=== PATIENT | female | born 1985 | race Caucasian/White ===

== ENCOUNTER → 2019-04-15 14:26 | Outpatient (CLI) | payer BC, SELFPAY ==
[2013-10-06 15:33] VITALS: BMI 37.1
[2019-04-15 16:13] LABS: hCG Titer Quant., Serum 79 mIU/mL (1-3)
== END ==
PROVIDERS: Family Provider Nurse Practitioner; PCP Nurse Practitioner; Visit Provider Obstetrics & Gynecology
DX: O20.0 Threatened abortion (principal); Z3A.00 Weeks of gestation of pregnancy not specified
CPT/HCPCS: 36415; 84702

== ENCOUNTER → 2019-04-17 10:54 | Outpatient (CLI) | payer BC, SELFPAY ==
[2013-10-06 15:33] VITALS: BMI 37.1
[2019-04-17 13:04] LABS: hCG Titer Quant., Serum 29 mIU/mL (1-3)
== END ==
PROVIDERS: Referring Provider Obstetrics & Gynecology; Visit Provider Obstetrics & Gynecology
DX: O20.0 Threatened abortion (principal); Z3A.00 Weeks of gestation of pregnancy not specified
CPT/HCPCS: 36415; 84702

== ENCOUNTER → 2019-06-03 09:43 | Outpatient (CLI) | payer BC, SELFPAY ==
[2019-06-03 10:47] LABS: Glucose 75GTT - Fasting 100 mg/dL (70-99)
[2019-06-03 10:55] LABS: Glucose 98 mg/dL (74-106)
[2019-06-03 11:58] LABS: Glucose 75GTT - 30 minutes 144 mg/dL (100-160)
[2019-06-03 12:00] LABS: Glucose 75GTT - 60 minutes 188 mg/dL (100-160)
[2019-06-03 12:51] LABS: Insulin 19.3 mU/L (2.6-37.6)
[2019-06-03 13:24] LABS: Glucose 75GTT - 120 minutes 104 mg/dL (70-140)
== END ==
PROVIDERS: Referring Provider Obstetrics & Gynecology Reproductive Endocrinology; Visit Provider Obstetrics & Gynecology Reproductive Endocrinology
DX: E28.2 Polycystic ovarian syndrome (principal)
CPT/HCPCS: 36415; 82947; 82951; 82952; 83525

== ENCOUNTER → 2020-11-17 | Outpatient (CLI) | payer BC, SELFPAY ==
[2013-10-06 15:33] VITALS: BMI 37.1
[2020-11-21 12:41] LABS: HPV APTIMA, High Risk Negative (Negative)
== END | disposition home or self-care (01) ==
LOC: LABSPEC 14:54
PROVIDERS: Visit Provider Student in an Organized Health Care Education/Training Program
DX: Z12.4 Encounter for screening for malignant neoplasm of cervix (principal)
CPT/HCPCS: 87624; 88175; G0145

== ENCOUNTER 2021-10-18 13:41 | Outpatient (CLI) | payer BC, SELFPAY ==
[2021-10-18 14:48] LABS: Hemoglobin A1c 5.5 % (3.8-5.6)
[2021-10-18 15:06] LABS: Estradiol 263.9 pg/mL; Follicle Stimulating Hormone 3.3 mIU/mL; Luteinizing Hormone 9.1 mIU/mL; T4 Free Direct 0.88 ng/dL (0.76-1.46); Thyroid Stim Hormone (TSH) 3.64 uIU/mL (0.358-3.74)
[2021-10-22 00:07] LABS: DHEA Sulfate 85.2 ug/dL (57.3-279.2)
[2021-10-24 21:25] LABS: 17-Hydroxyprogesterone 31 ng/dL (.)
== END 2021-10-18 23:59 | disposition home or self-care (01) ==
LOC: WOBLAB 13:43
PROVIDERS: Visit Provider Student in an Organized Health Care Education/Training Program
DX: N91.1 Secondary amenorrhea (principal)
CPT/HCPCS: 36415; 82627; 82670; 83001; 83002; 83036; 83498; 84146; 84402; 84439; 84443; 82626

== ENCOUNTER 2024-04-01 18:21 | Emergency (ER) | payer BC, SELFPAY ==
[2024-04-01 18:25] VITALS: BP 131/77; PULSE 97; RESP 20; TEMP 37.2; O2SAT 94
--- NOTE | 2024-04-01 21:15 | EX.ED.DYSGE1 ---
HPI History of Present Illness Chief Complaint: General Illness Informant: patient Narrative Narrative: Patient is a 39-year-old female with no significant past medical history presenting with low-grade fever, cough, sweating and throbbing headache. She states she is concerned for dehydration. She started having symptoms earlier this week (on Friday, 3 days ago). She states she is coughing up yellow sputum. She went to urgent care today where she received IM Toradol and prednisone and also had a breathing treatment this was around 1:30 PM. Show she is been a little more short of breath since this. She has had a temperature as high as 99 ?F. She has not taken any Tylenol ibuprofen today. She denies any sick contacts. Denies any sore throat, ear pain or nasal congestion. Denies abdominal pain, nausea or vomiting. Does not feel that she is urinating as much as she as she should be for how much she has been drinking. No other complaints or concerns reported at this time. Reports she had a negative flu, COVID and RSV swab today. [facility] Medical History (Updated 04/01/24 @ 22:[address] Dannielle Westbrook DO) Depression GERD (gastroesophageal reflux disease) Home Medications ?Medication ?Instructions ?Recorded ?Last Taken ?Type amoxicillin 875 mg-potassium 1 tab PO BID #14 tabs 04/01/24 Unknown Rx clavulanate 125 mg tablet azithromycin 250 mg tablet 250 mg PO DAILY #4 TABLETS 04/01/24 Unknown Rx escitalopram oxalate 20 mg tablet mg PO 04/01/24 Unknown History methylprednisolone 4 mg tablets in 4 mg PO PER PKG DIR 6 days #21 tabs 04/01/24 Unknown Rx a dose pack (Medrol (Glen)) omeprazole 40 mg capsule,delayed 40 mg PO QDAY 04/01/24 Unknown History release Allergy/AdvReac Type Severity Reaction Status Date / Time bupropion HCl (From Allergy Rash Verified 04/01/24 18:25 Wellbutrin) Social History Smoking Status: Never smoker ROS ROS ED Constitutional Constitutional ED: Reports chills, fever(s) and sweats ENT ENT ED: Denies rhinorrhea or sore throat Cardiovascular Cardiovascular: Denies chest pain or palpitations Respiratory/Chest Respiratory/Chest: Reports cough and dyspnea Gastrointestinal Gastrointestinal: Denies abdominal pain, nausea or vomiting Genitourinary Genitourinary ED: Denies dysuria or urinary frequency Musculoskeletal Musculoskeletal: Denies arthralgias or myalgias Integumentary Denies rash Neurologic Neurologic: Reports headache(s) EXAM Physical Exam Const Vital Signs: 04/01/24 18:25 04/01/24 18:25 04/01/24 21:23 Temperature 99 F 99 F 98.9 F Temperature Source Oral Oral Oral Pulse Rate 97 97 95 Respiratory Rate 20 H 20 H 20 H Respiratory Effort Respiratory Pattern Blood Pressure 131/77 H 131/77 H 184/77 H Blood Pressure Mean 95 95 112 Pulse Ox 94 94 93 Oxygen Delivery Method Room Air Room Air Room Air 04/01/24 21:25 04/01/24 22:00 Temperature 98.7 F Temperature Source Oral Pulse Rate 94 Respiratory Rate 24 H Respiratory Effort Normal Non-Labored Respiratory Pattern Normal Blood Pressure 173/76 H Blood Pressure Mean 108 Pulse Ox 93 Oxygen Delivery Method Room Air Positive well nourished and well developed Constitutional Narrative: Sweating General Appearance ED: well developed and NAD HEENT Reports TM's clear and moist mucous membranes HEENT Narrative: Normal oropharynx, geographic tongue present Tympanic Membrane ED: Yes TM's clear Eyes PERRL and EOMs intact bilaterally Neck no lymphadenopathy and supple Neck Narrative: No meningeal signs Chest Wall inspection of chest normal and palpation of chest normal Resp normal respiratory effort Auscultation: diminished lung sounds right lower; Negative for wheezes Cardio regular rate, regular rhythm and no murmurs GI normal to inspection, nondistended, normoactive bowel sounds and non-tender Extremity normal to inspection Neuro oriented x3 Sensorium / Orientation: alert Motor Exam: Negative for general weakness Psych mental status grossly normal Skin no rashes or lesions noted and no wounds MDM MDM MDM Narrative Medical decision making narrative: Patient evaluated for worsening sweats, cough and mild shortness of breath. Patient is mildly diaphoretic upon my evaluation. O2 saturation is not low normal 93 to 94% however she does not have increased work of breathing. She has mildly diminished breath sounds actually at the right base. Differential includes COVID-19 infection, viral syndrome, pneumonia, pleural effusion and pneumothorax. Lab work is obtained which does show leukocytosis of 14.9. While patient did have a dose of prednisone earlier today I doubt that this is already cause an increase in her white blood cell count. BMP shows mild hyponatremia (patient is given IV fluids in the emergency room), mild potassium with level of 3.1 and a very mild elevation of her creatinine of 1.1. She also has a left shift with 1.9% immature granulocytes. Chest x-ray of 2 views reviewed with myself as well as radiology shows a left upper lobe and lingular infiltrate. Patient overall is well-appearing. She is given Toradol for her symptoms in the emergency room. She will be given a dose of oral potassium for her mild hypokalemia. She is given a first dose of antibiotics (Augmentin and azithromycin). At this time will treat her outpatient. She is ambulated does not desaturate. Is given strict return precautions however. Patient verbalized agreement or stands plan. Discharged home in stable condition. Instructed alternate Tylenol and ibuprofen as needed for fever and discomfort. Lab Data Attestation: I reviewed the patient's lab results. Labs: Laboratory Results - last 24 hr 04/01/24 21:30 WBC 14.9 H RBC 4.36 Hgb 11.1 L Hct 34.1 L MCV 78.2 L MCH 25.5 L MCHC 32.6 RDW Std Deviation 38.5 RDW Coeff of Oleg 13.4 Plt Count 299 MPV 9.1 Immature Gran % (Auto) 1.900 H Neut % (Auto) 87.6 H Lymph % (Auto) 5.6 L [place] % (Auto) 4.4 Eos % (Auto) 0.2 Baso % (Auto) 0.3 Absolute Neuts (auto) 13.1 H Absolute Lymphs (auto) 0.84 Nucleated RBC % 0 Sodium 132 L Potassium 3.1 L Chloride 100 Carbon Dioxide 22.0 Anion Gap 10 BUN 9 Creatinine 1.10 H Estim Creat Clear Calc 100.78 Est GFR (MDRD) Af Amer 71 Est GFR (MDRD) Non-Af 58 L BUN/Creatinine Ratio 8.2 L Glucose 183 H Calcium 9.4 Radiography Diagnostic Testing: Clinical Impression(s) from Imaging Studies Chest X-Ray 04/01/24 21:45 IMPRESSION: Left upper lobe and lingula pneumonia Electronically Signed: Huy Artis MD at 22:19 EDT , Discharge Plan Triage Chief Complaint: General Illness ED Provider: Dannielle Westbrook Dx/Rx/DC Orders Clinical Impression: Left upper lobe pneumonia Instructions: ED Pneumonia (Adult) Prescriptions: New amoxicillin-pot clavulanate 875-125 mg tablet 1 tab PO BID Qty: 14 0RF azithromycin 250 mg tablet 250 mg PO DAILY Qty: 4 0RF No Action escitalopram oxalate 20 mg tablet PO omeprazole 40 mg capsule,delayed release(DR/EC) 40 mg PO QDAY methylprednisolone [Medrol (Glen)] 4 mg tablets,dose pack 4 mg PO PER PKG DIR 6 Days Qty: 21 0RF Primary Care Provider: Kayla Hawthorne Referrals: Care Physician,No Primary [Non-Staff] - Activity Restrictions/Additional Instructions: Please increase your fluid intake. Your potassium was mildly low today you are given a potassium supplement. Your sodium was also mildly low. Try to drink Body Armor other electrolyte rich drinks. Alternate ibuprofen and Tylenol regularly for fever and discomfort. If you are not having any wheezing you do not need to take the steroid pack prescribed today. I do recommend using [id number] Mucinex to help with your cough and break up the pneumonia in your chest. Print Language: Mohawk Disposition Disposition: Home, Self Care
[2024-04-01 21:23] VITALS: BP 184/77; PULSE 95; RESP 20; TEMP 37.2; O2SAT 93
[2024-04-01 21:26] VITALS: BMI 51.8
[2024-04-01] MEDS: 0.9% Normal Saline (1000mL) 1,000 ML 1000 ML IV (21:32)
[2024-04-01 21:44] LABS: Absolute Lymphocyte Count 0.84 X10^3/uL (0.83-4.51); Absolute Neutrophil Count 13.1 X10^3/uL (2.0-7.7); Basophil# 0.05 X10^3/uL; Basophil% 0.3 % (0-1); Eosinophil# 0.03 X10^3/uL; Eosinophils% 0.2 % (0-5); Hematocrit 34.1 % (37-47); Hemoglobin 11.1 g/dL (12.0-15.0); Lymphocyte # 0.84 X10^3/ul (0.83-4.51); Lymphocyte % 5.6 % (19-41); Mean Corp Hgb Conc 32.6 g/dL (32-36); Mean Corpuscular Hgb 25.5 pg (27.0-32.0); Mean Corpuscular Volume 78.2 fL (81-99); Mean Platelet Vol. 9.1 fl (6.2-12.0); Monocyte# 0.66 X10^3/uL; Monocyte% 4.4 % (0-10); NRBC Flagged by Analyzer 0 % (0-5); Neutrophil # 13.07 X10^3/uL (2.7-7.7); Neutrophil % 87.6 % (47-70); Platelet Count 299 K/mm3 (150-450); RBC Distribution Width CV 13.4 % (11.6-14.6); RBC Distribution Width SD 38.5 fl (35.1-43.9); Red Blood Count 4.36 M/mm3 (4.2-5.4); White Blood Count 14.9 K/mm3 (4.4-11.0)
--- NOTE | 2024-04-01 21:45 | RAD_ITS ---
STUDY: X-RAY CHEST REASON FOR EXAM: Female, 39 years old. cough TECHNIQUE: Bilateral COMPARISON: None. FINDINGS: Severe diffuse infiltrate in the left upper lobe and lingula. There is no demonstrated pleural abnormality. Normal size heart. Normal mediastinum and amaury. Normal visualized pulmonary arteries. Normal visualized aortic arch and descending thoracic aorta. Normal visualized thoracic spine. Normal visualized ribs, clavicles, and shoulders. There is no demonstrated abnormality of the visualized soft tissue structures of the upper abdomen. RAD/Chest PA and Lateral IMPRESSION: Left upper lobe and lingula pneumonia Electronically Signed: Huy Artis MD at 22:19 EDT Reading Location ID and State: [facility] / [place] Tel , Service support ,
[2024-04-01 22:00] VITALS: BP 173/76; PULSE 94; RESP 24; TEMP 37.1; O2SAT 93
[2024-04-01 22:07] LABS: Anion Gap 10 (5-15); BUN 9 mg/dL (7-18); BUN/Creat Ratio 8.2 RATIO (10-20); Calcium,Total 9.4 mg/dL (8.5-10.1); Chloride 100 mmol/L (98-107); EST Glomerular Filtration Rate 58 mL/min (>60); Est Glom Filt Rate - Afr Amer 71 mL/min (>60); Estimated Creatinine Clearance 100.78 ml/min; Glucose 183 mg/dL (74-106); Potassium 3.1 mmol/L (3.5-5.1); Sodium Level 132 mmol/L (136-145)
[2024-04-01 22:15] VITALS: O2SAT 92
[2024-04-01] MEDS: Potassium Chloride Oral Tablet 20 MEQ PO (23:12)
[2024-04-01] MEDS: Azithromycin 250 MG Tablet 500 MG PO (23:12)
[2024-04-01] MEDS: Amox/Clavulanate 875 MG Tablet PO (23:12)
[2024-04-01 23:13] VITALS: BP 137/76; PULSE 90; RESP 16; TEMP 37; O2SAT 95
== END 2024-04-01 23:18 | disposition home or self-care (01) ==
PROVIDERS: Emergency Provider Emergency Medicine; PCP Family Medicine; Visit Provider Emergency Medicine
DX: J18.9 Pneumonia, unspecified organism (principal); E87.6 Hypokalemia; E87.1 Hypo-osmolality and hyponatremia
CPT/HCPCS: 71046; 80048; 85025; 87631; 96360; 99284; J7030